=== PATIENT | male | born 1950 | race Caucasian/White ===

== ENCOUNTER 2017-01-07 07:24 | Observation (INO) | payer OTHER ==
[~2017-01-07] VITALS: Ht 182.9 cm; Wt 97.5 kg
[2017-01-07 08:14] LABS: Basophils # (auto) 0 uL; Basophils % (auto) 0.4 % (0.0-2.0); Eosinophils # (auto) 0.1 uL; Eosinophils % (auto) 0.9 % (0.0-7.0); Hematocrit 50.5 % (41.0-53.0); Hemoglobin 17.1 g/dL (13.5-17.5); Lymphocytes # (auto) 1.1 uL; Lymphocytes % (auto) 16.7 % (10.0-50.0); Mean Corpuscular Hemoglobin 31.9 pg (28.0-32.0); Mean Corpuscular Hgb Conc. 33.8 g/dL (32.0-36.0); Mean Corpuscular Volume 94.6 fL (80.0-100.0); Mean Platelet Volume 8.1 fL (7.4-10.4); Monocytes # (auto) 0.5 uL; Monocytes % (auto) 7.2 % (0.0-12.0); Neutrophils # (auto) 4.7 uL; Neutrophils % (auto) 74.8 % (37.0-80.0); Platelet Count (auto) 259 10^3/uL (140-450); Red Cell Distribution Width 14.1 % (11.6-16.0); White Blood Cell 6.3 10^3/uL (4.4-10.8)
[2017-01-07 08:52] LABS: Albumin 4.4 g/dL (3.4-5.0); BUN/Creatinine Ratio 17.1; Bilirubin, Total 0.9 mg/dL (0.2-1.0); Calcium 9.3 mg/dL (8.5-10.1)
[2017-01-07] MEDS ORDERED: SODIUM CHLORIDE 0.9% 500 ML IVB ONE (12:30)
[2017-01-07 13:05] LABS: INR 1.12 (0.9-1.15); Partial Thromboplastin Time 26.1 sec (22.64-33.71); Prothrombin Time 11.5 sec (9.37-12.3)
[2017-01-07 14:08] VITALS: BP 138/68
[2017-01-07 14:16] LABS: Amylase 54 U/L (25-115)
[2017-01-07 14:47] LABS: Urine Bilirubin Negative (Negative); Urine Blood Negative /uL (Negative); Urine Color Yellow (Yellow); Urine Glucose Normal (Normal); Urine Nitrite Negative (Negative); Urine RBC <1 /hpf (0 - 3); Urine Squamous Epithelial Cell FEW /hpf (<5); Urine Urobilinogen Normal (Negative); Urine pH 7.5 (5.0-8.0)
[2017-01-07 14:48] LABS: Urine Ketone 1+ (Negative)
[2017-01-07] MEDS ORDERED: WARFARIN SODIUM 5 MG TAB PO ONE ×2 (16:00→17:00)
== END 2017-01-07 15:44 | disposition home or self-care (01) | DRG 310 ==
LOC: ER 07:24 → OVERFLOW 12:31 → ER 15:44
PROVIDERS: ADMIT Family Medicine; ATTEND Family Medicine
DX: I48.0 Paroxysmal atrial fibrillation (principal); K59.00 Constipation, unspecified; Z90.79 Acquired absence of other genital organ(s); Z85.46 Personal history of malignant neoplasm of prostate; E78.5 Hyperlipidemia, unspecified; I10 Essential (primary) hypertension; Z82.49 Family history of ischemic heart disease and other diseases of the circulatory system; Z83.3 Family history of diabetes mellitus
CPT/HCPCS: 36415; 71010; 74176; 80053; 81001; 82150; 83690; 83735; 84484; 85025; 85610; 85730; 93005; 96360; 96361; 99285; G0378; J7030